=== PATIENT | female | born 1985 | race Caucasian/White ===

== ENCOUNTER 2021-11-12 16:29 | Emergency (ER) | payer OTHER, SELFPAY ==
[2021-11-12 16:57] VITALS: BP 128/72; PULSE 93; RESP 20; TEMP 37.7; O2SAT 100
--- NOTE | 2021-11-12 18:06 | ED.URI ---
HPI - URI/Sore Throat General Chief Complaint: Upper Respiratory Infection Stated Complaint: upper respiratory Time Seen by Provider: 11/12/21 18:06 Source: patient and family History of Present Illness HPI Narrative: Patient presents with a 3-day history of nasal congestion runny nose and cough. No shortness of breath no chest pain. 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 Patient states she uses Flonase daily for her nasal symptoms. Related Data Home Medications Medication Instructions Recorded Confirmed buspirone [BuSpar] 10 mg PO BID 11/12/21 11/12/21 Allergies Allergy/AdvReac Type Severity Reaction Status Date / Time azithromycin Allergy Hives Verified 11/12/21 17:13 sulfamethoxazole Allergy Hives Verified 11/12/21 17:11 [From ] trimethoprim [From ] Allergy Hives Verified 11/12/21 17:11 Review of Systems Review of Systems: CONSTITUTIONAL: Denies chills, or sweats. Reports fever and generalized body aches EYES: Denies visual changes, redness, or discharge. ENT: Denies otalgia. Reports nasal congestion runny nose and sore throat CARDIOVASCULAR: Denies chest pain, palpitations, or edema. RESPIRATORY: Denies dyspnea. Reports occasional cough GASTROINTESTINAL: Denies abdominal pain, nausea, vomiting, or diarrhea. GENITOURINARY: Denies dysuria or hematuria. SKIN: Denies rash or itching. MUSCULOSKELETAL: Denies back pain, joint pain, or myalgia. Reports generalized body aches NEUROLOGIC: Denies headache, numbness, or weakness. PSYCHIATRIC: Denies anxiety or depression. PMFSH Comments At time of signature, agree with nursing past medical, surgical, social and family history. There is no relevant family history pertinent to the presenting complaint Exam Narrative: The patient is a well-developed, well-nourished in no acute distress. SKIN: Skin is warm and dry without erythema, swelling or exudate. There is good turgor. No tenting. HEAD: Atraumatic. Normocephalic. No temporal or scalp tenderness. EYES: Moist and bright. Sclera and conjunctivae normal. No discharge. PERRLA. Extraocular motions intact. Gross visual acuity intact. EARS: Pinna is normal shape and contour. Clear external auditory canals. TM pearly ortega with good cone of light, no erythema or suppuration. Bilateral cerumen noted no gross hearing deficit. NOSE: pink, moist mucosa with good air movement. Clear rhinorrhea without nasal flaring. Septum midline. Mouth: moist mucous membranes. THROAT; mild erythema noted to posterior oropharynx with moderate postnasal drainage. Without exudate or ulceration.. Uvula midline. Normal movement of soft palate. NECK: Supple and nontender with full range of motion without discomfort. No meningeal signs. LUNGS: Equal and bilateral breath sounds without wheezes, rales or rhonchi. CHEST: The chest wall is without retractions or use of accessory muscles. HEART: Has a regular rate and rhythm without murmur, gallops, click or rub. ABDOMEN: Soft, nontender with positive active bowel sounds. No rebound tenderness. EXTREMITIES: Without cyanosis, clubbing or edema. Equal 2+ distal pulses and 2 second capillary refill noted. NEUROLOGIC: alert, active, . The patient moves all extremities with normal muscle strength. Normal muscle tone is noted. Normal coordination is noted. NO focal neurological findings noted. Course Course Level of Care: Express Care Visit Vital Signs Vital signs: Vital Signs Temperature 37.7 C H 11/12/21 16:57 Pulse Rate 93 11/12/21 16:57 Respiratory Rate 20 11/12/21 16:57 Blood Pressure 128/72 11/12/21 16:57 Pulse Oximetry 100 11/12/21 16:57 Temperature 37.7 C H 11/12/21 16:57 Pulse Rate 93 11/12/21 16:57 Respiratory Rate 20 11/12/21 16:57 Blood Pressure 128/72 11/12/21 16:57 Pulse Oximetry 100 11/12/21 16:57 Critical dx considered and discussed with pt. Educated patient on red flag s/s and to go to ED if s
== END 2021-11-12 18:33 | disposition home or self-care (01) ==
PROVIDERS: Emergency Provider Nurse Practitioner Family; PCP Family Medicine
DX: J06.9 Acute upper respiratory infection, unspecified (principal); Z20.822 Contact with and (suspected) exposure to COVID-19; F41.9 Anxiety disorder, unspecified
CPT/HCPCS: 99211; G0463